=== PATIENT | male | born 1960 ===

== ENCOUNTER 2016-11-07 06:52 | Day surgery (SDC) | payer MEDICAID ==
[2016-11-04 08:44] VITALS: BMI 37.3
[2016-11-07] MEDS ORDERED: Bupivacaine/Epi 0.25%-1:200,000 10 ml PF inj IJ ONE (07:52)
[2016-11-07] MEDS ORDERED: ceFAZolin IV 1 gm in Dextrose 0 GM/0 ML BAG IVPB ONE (07:52)
[2016-11-07] MEDS ORDERED: Lidocaine 1% Inj (20ml) ONE (07:52)
[2016-11-07] MEDS ORDERED: Midazolam 2 MG/2 ML VIAL ONE (07:56)
[2016-11-07] MEDS ORDERED: Propofol 10 mg/ml Inj (20 ML) ONE (07:56)
[2016-11-07] MEDS ORDERED: Lactated Ringer's 1,000 ML IV ONE ×2 (08:00→11:15)
[2016-11-07] MEDS ORDERED: ceFAZolin IV 2 gm in Dextrose 1 GM/50 ML BAG IVPB ONE (08:07)
[2016-11-07] MEDS ORDERED: ePHEDrine 50 mg/ml Inj ONE (09:02)
[2016-11-07] MEDS ORDERED: HYDROmorphone 0.5 mg/0.5 ml ISec IVP PRN (10:30)
--- NOTE | 2016-11-07 10:42 | PCM.SURG1 ---
Surgeon's Initial Post Op Note - Surgeon's Notes Surgeon: Dr. Meza [employer] Friendly Landscape Designer: Antonio [email or web address], Martha BERGER Type of Anesthesia: General LMA Pre-Operative Diagnosis: Lipomas of L & R chest and L & R flank Operative Findings: see operative report Post-Operative Diagnosis: Lipomas of L & R chest and L & R flank Operation Performed: Removal of L & R chest lipomas and L & R flank lipomas Specimen/Specimens Removed: L chest lipoma, R chest lipoma, L flank lipoma, R flank lipoma Estimated Blood Loss: EBL {In ML}: 30 Blood Products Given: N/A Drains Used: No Drains Post-Op Condition: Good Date of Surgery/Procedure: 11/07/16 Time of Surgery/Procedure: 10:42
[2016-11-07] MEDS ORDERED: Oxycodone/Acetaminophen 5/325 mg Tab PO PRN (10:43)
[2016-11-07 12:58] VITALS: PULSE 88
[2016-11-07 13:26] VITALS: BP 101/60; RESP 20; TEMP 98; O2SAT 98
--- NOTE | 2016-11-10 07:46 | OP ---
PROCEDURE DATE: 11/07/2016 PREOPERATIVE DIAGNOSES: 1. Sebaceous cyst of bilateral upper chest. 2. Lipoma of the bilateral flank and back. POSTOPERATIVE DIAGNOSES: Lipoma of the right lower chest, lipoma of the left upper chest, lipoma of the right flank and lipoma of left flank. PROCEDURE DONE: 1. Excision of lipoma of right lower chest 2x2 cm. 2. Excision of lipoma of the right upper chest 2x2 cm 3. Excision of lipoma of the right flank. 4. Complex multilayer closer of the right flank wound of approximately 4 x 2 cm size. 5. Excision of lipoma of the left flank approximately 5 x 3 cm size. 6. Complex multilayer closer of the wound of approximately 5 x 2 cm size. SURGEON: Adal Meza MD INSTRUCTIONAL SYSTEMS DESIGN CONSULTANT: Kat, PGY-2 resident. TYPE OF ANESTHESIA: General endotracheal tube anesthesia. ESTIMATED BLOOD LOSS: Around 30 mL for all procedure together. COMPLICATIONS: None. DRAIN: None. INTRAOPERATIVE FINDINGS: The patient had 2 x 2 cm lipoma of the right lower chest and left upper chest and the patient had approximately 5 x 4 cm lipoma of the right flank and 5 x 3 cm lipoma of the left flank. DESCRIPTION OF PROCEDURE: On intraoperative steps, this 56-year-old male who was initially diagnosed with sebaceous cyst of the chest and the lipoma of the bilateral flank and patient was consented for the excision of the sebaceous cyst and lipoma. The patient was brought to the OR and placed supine on the operating table. After induction of the anesthesia, the bilateral upper chest and right flank was prepped and draped in the usual sterile fashion and after induction of the anesthesia, the elliptical incision was made surrounding the left upper chest lesion. After incising skin, subcutaneous tissue, upper and lower flap was created and approximately 2 x 2 cm lipoma of the left upper chest was excised and wound was irrigated, wound was closed in two layer, subcutaneous with 2-0 Vicryl, skin with 4-0 Monocryl and now another right lower chest lesion was isolated and elliptical incision was made. After incising skin and subcutaneous tissue, upper and lower flap was created and the lipoma was identified and it was excised and it was sent to the table for the pathology. The size of lipoma was 2 x 2 cm size and wound was irrigated and closed in two layers, subcutaneous with a 2-0 Vicryl, skin with a 4-0 Monocryl, and dry sterile dressing was applied. Now the right flank lipoma appeared to be diffuse and elliptical incision was made sounding of 4 x 2 cm size and upper and lower flap was created and approximately 5 x 3 cm lipoma was completely excised. Wound was irrigated and wound was closed in a complex manner. The upper and lower flap to the underlying fascia and muscle, the another layer of subcutaneous to the underlying fascia. Another layer of the subcutaneous with a 2-0 Vicryl, skin with a 4-0 Monocryl and another layer of the skin with a 4-0 Nylon, dry sterile dressing was applied. Now the patient was flipped to the left side and the left flank was prepped and draped and an elliptical incision was made. After incising skin and subcutaneous tissue, the upper and lower flap was created and approximately 5 x 4 cm lipoma was excised and it was sent to the table for the pathology. The wound was irrigated and complex layer closure of the wound was done. The upper flap with underlying fascia, another layer of the subcutaneous with underlying fascia, another simple layer of the subcutaneous with 2-0 Vicryl, skin with a 4-0 Monocryl and another layer of the skin with a 4-0 Nylon and dry sterile dressing was applied. Count of the instruments was correct. The patient was extubated in OR, sent to the postanesthesia care unit in stable condition. The patient tolerated the procedure well. Adal Meza MD TRAN
== END 2016-11-07 13:25 | disposition home or self-care (01) ==
LOC: C.SDS 06:52
PROVIDERS: ATTEND Surgery Surgical Critical Care
DX: D17.1 Benign lipomatous neoplasm of skin and subcutaneous tissue of trunk (principal)
CPT/HCPCS: 11406; 13101; 88304; J0690; J2250; J2405; J2704; J2765; J3010; J7120